=== PATIENT | female | born 1995 ===

== ENCOUNTER 2022-05-13 16:27 | Outpatient (CLI) | payer OTHER | END 2022-05-13 16:57 | disposition home or self-care (01) | LOC: PRENATAL 16:27 | PROVIDERS: ATTEND Obstetrics & Gynecology Maternal & Fetal Medicine | DX: O35.9XX0 Maternal care for (suspected) fetal abnormality and damage, unspecified, not applicable or unspecified (principal); O35.3XX0 Maternal care for (suspected) damage to fetus from viral disease in mother, not applicable or unspecified; O99.340 Other mental disorders complicating pregnancy, unspecified trimester; O28.1 Abnormal biochemical finding on antenatal screening of mother; O34.219 Maternal care for unspecified type scar from previous cesarean delivery; Z3A.30 30 weeks gestation of pregnancy ==